=== PATIENT | female | born 1995 | race African-American/Black ===

== ENCOUNTER 2017-05-09 20:30 | Emergency (ER) | payer BC, MEDICAID ==
[~2017-05-09] VITALS: Ht 152.4 cm; Wt 48.5 kg
[2017-05-09] MEDS ORDERED: KEFLEX500 MG ORAL (21:32)
[2017-05-09 21:35] VITALS: BP 117/73
--- NOTE | 2017-05-10 15:21 | Emergency Room Report ---
History of Present Illness General Chief Complaint: Pain Source: Patient Present Illness HPI 22YOF with left middle finger splinter under nail Accidentally got splinter from wood table at work Was unable to remove it herself Now with mild pain at site Allergies: Coded Allergies: No Known Allergies (Unverified , 05/09/17) Patient History Past Medical History: none Past Surgical History: none Pertinent Family History: none Last Menstrual Period: 04/05/17 Now: No : 0 Para: 0 Immunizations: UTD Reviewed Nursing Documentation: PMH: Agreed, PSxH: Agreed Nursing Documentation-PMH Past Medical History: No Stated History Review of Systems All Other Systems: negative except mentioned in HPI Physical Exam Vital Signs Date Time Temp Pulse Resp B/P (MAP) Pulse Ox O2 Delivery O2 Flow Rate FiO2 05/09/17 20:33 98.2 60 14 117/73 100 05/09/17 21:35 Room Air Sp02 EP Interpretation: reviewed, normal General Appearance: normal inspection, well appearing, no apparent distress, alert, GCS 15, non-toxic Head: normocephalic, atraumatic Eyes: bilateral eye PERRL, bilateral eye EOMI ENT: normal ENT inspection, hearing grossly normal, normal voice Neck: normal inspection, full range of motion, supple, no bony tend Respiratory: normal inspection, lungs clear, normal breath sounds, no respiratory distress, no retraction, no wheezing Cardiovascular #1: regular rate, rhythm, no edema Gastrointestinal: normal inspection, normal bowel sounds, non tender, soft, no guarding, no hernia Genitourinary: no CVA tenderness Musculoskeletal: normal inspection, back normal, normal range of motion, Lili' s Sign negative, other - left middle finger: splinter tip seen exiting nail. Under nail the splinter splints into 2 additional even smaller segments Neurologic: normal inspection, alert, oriented x3, responsive, hitcher III-XII nml as tested, speech normal Psychiatric: normal inspection, judgement/insight normal, mood/affect normal Skin: normal inspection, normal color, no rash Procedures Additional Procedure Procedure Narrative Foreign body removal Digital nerve block done at base of finger Area cleaned with chlorhexedine Exiting sliver unable to be grabbed by forceps available in ED Nail was cut down vertically and largest pieces removed Patient requested we stop, not remove additional very small pieces Medical Decision Making Diagnostic Impression: Primary Impression: Superficial foreign body (sliver) ER Course S/p sliver removal in ED Given home remedy instructions for additional FB removal Rx keflex Advised the existing small pieces will push out on their own PMD followup as needed Last Vital Signs Date Time Temp Pulse Resp B/P (MAP) Pulse Ox O2 Delivery O2 Flow Rate FiO2 05/09/17 21:35 98.2 14 117/73 100 05/09/17 21:35 60 Room Air Status: improved Disposition: HOME, SELF-CARE Condition: Improved Scripts Cephalexin* (KEFLEX*) 500 Mg Capsule 500 MG ORAL Q6H for 7 Days, #28 CAP 0 Refills Prov: ELAINE ZAMORA M.D. 05/09/17 Patient Instructions: Sliver Removal, Care After ELAINE ZAMORA M.D. May 10, 2017 15:21
== END 2017-05-09 22:08 | disposition home or self-care (01) ==
LOC: EDBD 20:30 → EMR 20:57
DX: S60.453A Superficial foreign body of left middle finger, initial encounter (principal); W45.8XXA Other foreign body or object entering through skin, initial encounter; Y92.89 Other specified places as the place of occurrence of the external cause
CPT/HCPCS: 99282

== ENCOUNTER 2017-06-14 14:18 | Emergency (ER) | payer MEDICAID ==
[~2017-06-14] VITALS: Ht 152.4 cm; Wt 48.5 kg
[~2017-06-14 14:18] MED LIST: KEFLEX500 MG ORAL
[2017-06-14 14:22] VITALS: BP 104/65
[2017-06-14] MEDS ORDERED: NKM (14:27)
[2017-06-14] MEDS ORDERED: Pseudoephedrine 30mg tab ORAL ONE (14:45)
[2017-06-14] MEDS ORDERED: FLONASE ALLERG9.9 ML NS (15:06)
[2017-06-14] MEDS ORDERED: SUDAFED 12-HOU120 MG PO (15:06)
[2017-06-14] MEDS ORDERED: IBUPROFEN600 MG ORAL (15:06)
[2017-06-14 15:15] VITALS: BP 111/71
--- NOTE | 2017-06-14 22:16 | Emergency Room Report ---
History of Present Illness General Chief Complaint: Upper Respiratory Illness Source: Patient Present Illness [facility] The patient is a 22-year-old female presenting for multiple complaints including nasal congestion, cough, subjective fever and chills. This has been present for the past week. She denies any known sick contacts or recent travel. She does have pain described as a 5/10 facial pain. No known provoking or relieving factors. She has not tried any medications. She denies any other symptoms Allergies: Coded Allergies: No Known Allergies (Unverified , 05/09/17) Patient History Past Medical History: see triage record Pertinent Family History: none Last Menstrual Period: 05/17/17. Reviewed Nursing Documentation: PMH: Agreed, PSxH: Agreed Nursing Documentation-PMH Past Medical History: No Stated History Review of Systems All Other Systems: negative except mentioned in HPI Physical Exam Vital Signs Date Time Temp Pulse Resp B/P (MAP) Pulse Ox O2 Delivery O2 Flow Rate FiO2 06/14/17 14:22 98.2 63 17 104/65 99 Room Air Sp02 EP Interpretation: reviewed, normal General Appearance: no apparent distress, alert, GCS 15, non-toxic Head: normocephalic, atraumatic Eyes: bilateral eye normal inspection, bilateral eye PERRL ENT: hearing grossly normal, normal pharynx, no angioedema, normal voice, TMs + canals normal, uvula midline, moist mucus membranes, nasal congestion, other - TTP over maxillary sinuses Respiratory: chest non-tender, lungs clear, normal breath sounds, speaking full sentences Cardiovascular #1: regular rate, rhythm, no edema Musculoskeletal: back normal, gait/station normal, normal range of motion, non- tender Neurologic: alert, oriented x3, responsive, motor strength/tone normal, sensory intact, speech normal Psychiatric: judgement/insight normal, memory normal, mood/affect normal, no suicidal/homicidal ideation Skin: normal color, no rash, warm/dry, well hydrated Lymphatic: no adenopathy Medical Decision Making PA Attestation Dr. Sexton is my supervising physician. Patient management was discussed with my supervising physician Diagnostic Impression: Primary Impression: Sinusitis Qualified Codes: J01.00 - Acute maxillary sinusitis, unspecified ER Course The patient is a 22-year-old female presenting for multiple complaints including nasal congestion, facial pain, and subjective fever Differential diagnosis include but not limited to pharyngitis, sinusitis, AOM, bronchitis, PNA Physical exam: Vitals within normal limits. Afebrile. No apparent distress There is tenderness to palpation over bilateral maxillary sinuses with nasal congestion HEENT exam: No tonsillar edema. Uvula midline. Moist mucous membranes. There is no cervical lymphadenopathy. Lungs are clear to auscultation bilaterally Skin is warm and dry. No rash The patient will be discharged home with a prescription for Sudafed, Motrin, and flonase and is given ER precautions. Patient will followup with primary care Last Vital Signs Date Time Temp Pulse Resp B/P (MAP) Pulse Ox O2 Delivery O2 Flow Rate FiO2 06/14/17 15:17 97.9 66 18 111/71 100 Room Air Status: improved Disposition: HOME, SELF-CARE Condition: Improved Scripts Pseudoephedrine Hcl (SUDAFED 12-HOUR) 120 Mg Tablet.er 120 MG PO Q12HR, #30 TAB Prov: JEFRY DIAZ.A. 06/14/17 Fluticasone Propionate (Flonase Allergy Relief) 9.9 Ml [place].susp 1 SPRAYS NS DAILY, #10 ML Prov: JEFRY DIAZ P.A. 06/14/17 Ibuprofen* (MOTRIN*) 600 Mg Tablet 600 MG ORAL Q8H Y for For Pain, #30 TAB 0 Refills Prov: JEFRY DIAZ P.A. 06/14/17 Referrals: NON PHYSICIAN (PCP) Patient Instructions: Sinus Headache, Sinusitis, Adult Additional Instructions: I discussed my findings with the patient. All questions and concerns have been answered. Treatment and medication compliance have been addressed. I advised the patient that they need to follow up with PMD in 3-5 days. Return to ED if symptoms worsen, new symptoms arise, or if needed for any reason. Patient verbalized understanding of discharge instructions. JEFRY DIAZ Jun 14, 2017 22:16
== END 2017-06-14 15:17 | disposition home or self-care (01) ==
LOC: EMR 15:00
DX: J32.9 Chronic sinusitis, unspecified (principal)
CPT/HCPCS: 99283